=== PATIENT | female | born 1955 | race African-American/Black ===

== ENCOUNTER 2018-03-09 15:45 | Inpatient (IN) | payer MEDICARE, BC, MEDICAID ==
[~2018-03-09] VITALS: Ht 170.2 cm; Wt 133.4 kg
[2018-03-09 18:00] VITALS: BP 128/63
[2018-03-09] MEDS ORDERED: NON FORMULARY PATIENT HOME MED EA XX SCH (18:00)
[2018-03-09] MEDS ORDERED: BISACODYL 10MG SUPP PR PRN (18:00)
[2018-03-09] MEDS ORDERED: ACETAMINOPHEN 650MG/20.3ML UDC PO PRN (18:00)
[2018-03-09] MEDS ORDERED: CALCIUM CARBONATE 500MG TABLET CHEW PO PRN (18:00)
[2018-03-09] MEDS ORDERED: MAGNESIUM HYDROXIDE 400MG/5ML 30ML UDC PO PRN (18:00)
[2018-03-09] MEDS ORDERED: NA PHOS,M-B/NA PHOS,DI-BA ENEMA 118ML PR PRN (18:00)
[2018-03-09] MEDS ORDERED: DEXTROSE 50% WATER 50ML SYRINGE IV PRN (18:00)
[2018-03-09 20:00] VITALS: BP 125/59
[2018-03-09] MEDS ORDERED: LIDOCAINE HCL 4% CREAM 76GM TUBE TP PRN (20:30)
[2018-03-09] MEDS: INSULIN LISPRO 100 UNITS/ML SUBCUT SCH (21:00)
[2018-03-09] MEDS: HYDROCODONE/ACETAMINOPHEN 10/325MG TABLET PO PRN (21:01)
[2018-03-09] MEDS: PANTOPRAZOLE 40MG DR TABLET PO SCH (21:01)
[2018-03-09] MEDS: ATORVASTATIN CALCIUM 40MG TABLET PO SCH (21:01)
[2018-03-09] MEDS: BLOOD SUGAR DIAGNOSTIC STRIP TEST SCH (21:06)
[2018-03-09] MEDS: INSULIN GLARGINE UD 100 UNITS/ML SYR SUBCUT SCH (22:00)
[2018-03-09] MEDS: MORPHINE SULFATE 15MG TABLET SR PO SCH (22:39)
[2018-03-09] MEDS: GABAPENTIN 300MG CAPSULE PO SCH (22:40)
[2018-03-09] MEDS ORDERED: INFLUENZA VIRUS VACCINE(AFLURIA) 0.5ML SYR IM ONE (22:45)
[2018-03-09] MEDS ORDERED: PNEUMOCOCCAL 23-VAL P-SAC VAC 0.5 ML IM ONE (22:45)
[2018-03-10] MEDS ORDERED: GLIP5TAB12 MT (04:25)
[2018-03-10] MEDS ORDERED: INSU100V9 SQ (04:25)
[2018-03-10] MEDS ORDERED: GABA-531 MT (04:25)
[2018-03-10] MEDS ORDERED: INSU100I24 SQ (04:25)
[2018-03-10 06:00] LABS: BASOPHILS % 0.3 % (0.0-2.0); EOSINOPHILS % 4.3 % (0.0-5.0); HEMATOCRIT. 34.3 % (36.0-48.0); HEMOGLOBIN. 11.5 g/dL (12.0-16.0); LYMPHOCYTES % 36.7 % (20.0-50.0); MEAN CORPUSCULAR HEMOGLOBIN 29.9 pg (28.0-32.0); MEAN CORPUSCULAR VOLUME 89.4 fL (81.0-99.0); MONOCYTES % 8.3 % (2.0-8.0); NEUTROPHILS % 50.4 % (40.0-76.0); PLATELET 164 x1000/uL (130-400); RED BLOOD CELL COUNT 3.84 mill/uL (4.2-5.4); RED CELL DISTRIBUTION WIDTH 15.1 % (11.6-14.6)
[2018-03-10 06:24] LABS: CHLORIDE 108 mEq/L (98-107)
[2018-03-10] MEDS: GABAPENTIN 300MG CAPSULE PO SCH ×3 (06:41→21:47)
[2018-03-10] MEDS: BLOOD SUGAR DIAGNOSTIC STRIP TEST SCH ×4 (06:41→21:41)
[2018-03-10] MEDS: INSULIN LISPRO 100 UNITS/ML SUBCUT SCH ×4 (06:42→21:00)
[2018-03-10 08:00] VITALS: BP 126/55
[2018-03-10] MEDS: METHOCARBAMOL 750MG TABLET PO SCH ×2 (08:49→17:39)
[2018-03-10] MEDS: FUROSEMIDE 40MG TABLET PO SCH ×2 (08:49→09:00)
[2018-03-10] MEDS: PANTOPRAZOLE 40MG DR TABLET PO SCH ×2 (08:49→20:41)
[2018-03-10] MEDS: TERBINAFINE HCL 250MG TABLET PO SCH (08:49)
[2018-03-10] MEDS: FOLIC ACID 1MG TABLET PO SCH (08:50)
[2018-03-10] MEDS: MORPHINE SULFATE 15MG TABLET SR PO SCH ×2 (08:50→20:42)
[2018-03-10] MEDS: LOSARTAN POTASSIUM 25 MG TABLET PO SCH (09:00)
[2018-03-10] MEDS: AMLODIPINE 10MG TABLET PO SCH (09:00)
[2018-03-10] MEDS: METOPROLOL TARTRATE 50MG TABLET PO SCH ×2 (09:00→20:41)
[2018-03-10] MEDS: GLIPIZIDE XL 2.5MG TABLET PO SCH ×2 (09:00→17:39)
[2018-03-10] MEDS: INSULIN GLARGINE UD 100 UNITS/ML SYR SUBCUT SCH ×2 (10:45→21:48)
[2018-03-10] MEDS: HYDROCODONE/ACETAMINOPHEN 10/325MG TABLET PO PRN (13:48)
[2018-03-10 16:50] LABS: T4 FREE 1.04 ng/dL (0.76-1.46)
[2018-03-10 17:09] LABS: FOLIC ACID (FOLATE) SERUM >20 ng/mL ng/mL (>5.38); VITAMIN B12 SERUM 221 pg/mL (211-911)
[2018-03-10] MEDS: RIVAROXABAN 20 MG TABLET PO SCH (17:39)
[2018-03-10 20:00] VITALS: BP 119/74
[2018-03-10] MEDS: ATORVASTATIN CALCIUM 40MG TABLET PO SCH (20:41)
[2018-03-11] MEDS: GABAPENTIN 300MG CAPSULE PO SCH ×3 (05:59→21:16)
[2018-03-11] MEDS: BLOOD SUGAR DIAGNOSTIC STRIP TEST SCH ×4 (06:02→21:08)
[2018-03-11 06:16] LABS: BASOPHILS % 0.3 % (0.0-2.0); EOSINOPHILS % 4.5 % (0.0-5.0); HEMOGLOBIN. 11.9 g/dL (12.0-16.0); LYMPHOCYTES % 35.1 % (20.0-50.0); MEAN CORPUSCULAR HEMOGLOBIN 30.2 pg (28.0-32.0); MEAN CORPUSCULAR VOLUME 88.8 fL (81.0-99.0); MEAN PLATELET VOLUME 10.3 fl (7.4-10.4); MONOCYTES % 7.7 % (2.0-8.0); NEUTROPHILS % 52.4 % (40.0-76.0); PLATELET 180 x1000/uL (130-400); RED BLOOD CELL COUNT 3.94 mill/uL (4.2-5.4); RED CELL DISTRIBUTION WIDTH 15.1 % (11.6-14.6)
[2018-03-11] MEDS: INSULIN LISPRO 100 UNITS/ML SUBCUT SCH ×4 (06:36→21:26)
[2018-03-11 06:56] LABS: AMMONIA 44 uMol/L (<32)
[2018-03-11 07:01] LABS: CHLORIDE 104 mEq/L (98-107)
[2018-03-11 07:33] LABS: CREATINE KINASE 30 IU/L (26-192); HDL CHOLESTEROL 37 mg/dL (40-59); LDL CHOLESTEROL 58 mg/dL (5-100); PHOSPHORUS 4.8 mg/dL (2.5-4.9); TOTAL IRON BINDING CAPACITY 267 ug/dL (250-450)
[2018-03-11 08:15] VITALS: BP 107/38
[2018-03-11] MEDS: FOLIC ACID 1MG TABLET PO SCH (08:31)
[2018-03-11] MEDS: METHOCARBAMOL 750MG TABLET PO SCH ×2 (08:31→17:17)
[2018-03-11] MEDS: PANTOPRAZOLE 40MG DR TABLET PO SCH (08:31)
[2018-03-11] MEDS: FUROSEMIDE 40MG TABLET PO SCH (08:32)
[2018-03-11] MEDS: GLIPIZIDE XL 2.5MG TABLET PO SCH ×2 (08:32→18:38)
[2018-03-11] MEDS: TERBINAFINE HCL 250MG TABLET PO SCH (08:32)
[2018-03-11] MEDS: MORPHINE SULFATE 15MG TABLET SR PO SCH ×2 (08:33→20:15)
[2018-03-11] MEDS: LOSARTAN POTASSIUM 25 MG TABLET PO SCH (09:00)
[2018-03-11] MEDS: AMLODIPINE 10MG TABLET PO SCH (09:00)
[2018-03-11] MEDS: LACTULOSE 20G/30ML UDC PO SCH ×3 (10:38→17:00)
[2018-03-11] MEDS: DOCUSATE SODIUM 100MG CAPSULE PO SCH ×2 (10:45→17:00)
[2018-03-11] MEDS: INSULIN GLARGINE UD 100 UNITS/ML SYR SUBCUT SCH ×2 (11:21→21:26)
[2018-03-11] MEDS: RIVAROXABAN 20 MG TABLET PO SCH (17:17)
[2018-03-11 20:00] VITALS: BP 127/40
[2018-03-11] MEDS: ATORVASTATIN CALCIUM 40MG TABLET PO SCH (20:14)
[2018-03-11] MEDS: FAMOTIDINE 20MG TABLET PO SCH (20:14)
[2018-03-11] MEDS: POLYETHYLENE GLYCOL 3350 (17GM) 1 DOSE PACK PO SCH (20:15)
[2018-03-11] MEDS: MUPIROCIN 2% OINT 22GM NS SCH (21:17)
[2018-03-12] MEDS: GABAPENTIN 300MG CAPSULE PO SCH ×3 (06:14→21:43)
[2018-03-12] MEDS: BLOOD SUGAR DIAGNOSTIC STRIP TEST SCH ×4 (06:18→21:44)
[2018-03-12] MEDS: INSULIN LISPRO 100 UNITS/ML SUBCUT SCH ×4 (06:34→21:00)
[2018-03-12 08:12] VITALS: BP 108/29
[2018-03-12] MEDS: MUPIROCIN 2% OINT 22GM NS SCH ×2 (08:42→21:40)
[2018-03-12] MEDS: FAMOTIDINE 20MG TABLET PO SCH ×2 (08:42→21:43)
[2018-03-12] MEDS: GLIPIZIDE XL 2.5MG TABLET PO SCH ×2 (08:42→17:16)
[2018-03-12] MEDS: FOLIC ACID 1MG TABLET PO SCH (08:42)
[2018-03-12] MEDS: METHOCARBAMOL 750MG TABLET PO SCH ×2 (08:42→17:15)
[2018-03-12] MEDS: TERBINAFINE HCL 250MG TABLET PO SCH (08:42)
[2018-03-12] MEDS: MORPHINE SULFATE 15MG TABLET SR PO SCH ×2 (08:46→21:42)
[2018-03-12] MEDS: LOSARTAN POTASSIUM 25 MG TABLET PO SCH (09:00)
[2018-03-12] MEDS: DOCUSATE SODIUM 100MG CAPSULE PO SCH (09:00)
[2018-03-12] MEDS: AMLODIPINE 10MG TABLET PO SCH (09:00)
[2018-03-12] MEDS: INSULIN GLARGINE UD 100 UNITS/ML SYR SUBCUT SCH ×2 (10:38→21:45)
[2018-03-12] MEDS: CYANOCOBALAMIN 1000MCG TABLET PO SCH (13:37)
[2018-03-12] MEDS: RIVAROXABAN 20 MG TABLET PO SCH (17:15)
[2018-03-12] MEDS: THROAT LOZENGES-BENZOCAINE/MENTH/CETYLPYRD CL LOZENGES MM PRN (17:16)
[2018-03-12 20:00] VITALS: BP 140/62
[2018-03-12] MEDS: POLYETHYLENE GLYCOL 3350 (17GM) 1 DOSE PACK PO SCH (21:00)
[2018-03-12] MEDS: ATORVASTATIN CALCIUM 40MG TABLET PO SCH (21:43)
[2018-03-12] MEDS: HYDROCODONE/ACETAMINOPHEN 10/325MG TABLET PO PRN (23:36)
[2018-03-13] MEDS: BLOOD SUGAR DIAGNOSTIC STRIP TEST SCH ×4 (06:03→21:36)
[2018-03-13] MEDS: GABAPENTIN 300MG CAPSULE PO SCH ×3 (06:04→21:35)
[2018-03-13 06:42] LABS: BASOPHILS % 0.5 % (0.0-2.0); EOSINOPHILS % 4.3 % (0.0-5.0); HEMATOCRIT. 35.1 % (36.0-48.0); LYMPHOCYTES % 39.6 % (20.0-50.0); MEAN CORPUSCULAR HEMOGLOBIN 30.1 pg (28.0-32.0); MEAN CORPUSCULAR VOLUME 88.6 fL (81.0-99.0); MEAN PLATELET VOLUME 10.2 fl (7.4-10.4); MONOCYTES % 7.8 % (2.0-8.0); NEUTROPHILS % 47.8 % (40.0-76.0); PLATELET 187 x1000/uL (130-400); RED BLOOD CELL COUNT 3.97 mill/uL (4.2-5.4); RED CELL DISTRIBUTION WIDTH 14.7 % (11.6-14.6)
[2018-03-13 07:14] LABS: CHLORIDE 107 mEq/L (98-107)
[2018-03-13 08:00] VITALS: BP 120/42
[2018-03-13] MEDS: INSULIN LISPRO 100 UNITS/ML SUBCUT SCH ×4 (09:00→21:00)
[2018-03-13] MEDS: AMLODIPINE 10MG TABLET PO SCH (09:00)
[2018-03-13] MEDS: MUPIROCIN 2% OINT 22GM NS SCH ×2 (09:49→21:34)
[2018-03-13] MEDS: GLIPIZIDE XL 2.5MG TABLET PO SCH ×2 (09:52→16:03)
[2018-03-13] MEDS: CYANOCOBALAMIN 1000MCG TABLET PO SCH (09:52)
[2018-03-13] MEDS: METHOCARBAMOL 750MG TABLET PO SCH ×2 (09:53→16:02)
[2018-03-13] MEDS: TERBINAFINE HCL 250MG TABLET PO SCH (09:53)
[2018-03-13] MEDS: FAMOTIDINE 20MG TABLET PO SCH ×2 (09:53→21:35)
[2018-03-13] MEDS: FOLIC ACID 1MG TABLET PO SCH (09:54)
[2018-03-13] MEDS: MORPHINE SULFATE 15MG TABLET SR PO SCH ×2 (09:55→21:36)
[2018-03-13] MEDS: LOSARTAN POTASSIUM 25 MG TABLET PO SCH (09:55)
[2018-03-13] MEDS: INSULIN GLARGINE UD 100 UNITS/ML SYR SUBCUT SCH ×2 (11:14→21:38)
[2018-03-13] MEDS: HYDROCODONE/ACETAMINOPHEN 10/325MG TABLET PO PRN (11:56)
[2018-03-13] MEDS: CYANOCOBALAMIN 1000MCG/ML VIAL IM SCH (15:59)
[2018-03-13] MEDS: RIVAROXABAN 20 MG TABLET PO SCH (16:02)
[2018-03-13] MEDS ORDERED: METHYL SALICYLATE/MENTHOL CREAM 85GM TOP PRN (16:30)
[2018-03-13] MEDS: METHYL SALICYLATE/MENTHOL CREAM 85GM TOP PRN (19:44)
[2018-03-13 20:00] VITALS: BP 133/46
[2018-03-13] MEDS: POLYETHYLENE GLYCOL 3350 (17GM) 1 DOSE PACK PO SCH (21:00)
[2018-03-13] MEDS: ATORVASTATIN CALCIUM 40MG TABLET PO SCH (21:35)
[2018-03-14] MEDS: METHYL SALICYLATE/MENTHOL CREAM 85GM TOP PRN (05:59)
[2018-03-14] MEDS: BLOOD SUGAR DIAGNOSTIC STRIP TEST SCH ×4 (06:16→21:35)
[2018-03-14] MEDS: GABAPENTIN 300MG CAPSULE PO SCH ×3 (06:16→21:27)
[2018-03-14 07:07] LABS: AMMONIA 25 uMol/L (<32)
[2018-03-14] MEDS: INSULIN LISPRO 100 UNITS/ML SUBCUT SCH ×4 (07:46→22:10)
[2018-03-14 08:01] VITALS: BP 116/38
[2018-03-14] MEDS: METHOCARBAMOL 750MG TABLET PO SCH ×2 (08:24→17:42)
[2018-03-14] MEDS: FOLIC ACID 1MG TABLET PO SCH (08:24)
[2018-03-14] MEDS: GLIPIZIDE XL 2.5MG TABLET PO SCH ×2 (08:24→17:42)
[2018-03-14] MEDS: TERBINAFINE HCL 250MG TABLET PO SCH (08:25)
[2018-03-14] MEDS: FAMOTIDINE 20MG TABLET PO SCH ×2 (08:25→21:34)
[2018-03-14] MEDS: CYANOCOBALAMIN 1000MCG/ML VIAL IM SCH (08:25)
[2018-03-14] MEDS: MORPHINE SULFATE 15MG TABLET SR PO SCH (08:25)
[2018-03-14] MEDS: AMLODIPINE 10MG TABLET PO SCH (08:26)
[2018-03-14] MEDS: LOSARTAN POTASSIUM 25 MG TABLET PO SCH (08:26)
[2018-03-14] MEDS: MUPIROCIN 2% OINT 22GM NS SCH ×2 (09:00→21:42)
[2018-03-14] MEDS: INSULIN GLARGINE UD 100 UNITS/ML SYR SUBCUT SCH ×2 (09:49→22:12)
[2018-03-14] MEDS: HYDROCODONE/ACETAMINOPHEN 10/325MG TABLET PO PRN (15:28)
[2018-03-14] MEDS: RIVAROXABAN 20 MG TABLET PO SCH (17:42)
[2018-03-14 20:00] VITALS: BP 119/38
[2018-03-14] MEDS ORDERED: MORPHINE SULFATE 15MG TABLET SR PO SCH (21:00)
[2018-03-14] MEDS: POLYETHYLENE GLYCOL 3350 (17GM) 1 DOSE PACK PO SCH (21:00)
[2018-03-15] MEDS: BLOOD SUGAR DIAGNOSTIC STRIP TEST SCH ×4 (06:19→21:26)
[2018-03-15] MEDS: GABAPENTIN 300MG CAPSULE PO SCH ×3 (06:19→21:10)
[2018-03-15] MEDS: INSULIN LISPRO 100 UNITS/ML SUBCUT SCH ×4 (06:19→21:28)
[2018-03-15] MEDS: THROAT LOZENGES-BENZOCAINE/MENTH/CETYLPYRD CL LOZENGES MM PRN ×2 (06:23→10:21)
[2018-03-15 08:00] VITALS: BP 104/40
[2018-03-15] MEDS: CYANOCOBALAMIN 1000MCG/ML VIAL IM SCH (09:00)
[2018-03-15] MEDS: LOSARTAN POTASSIUM 25 MG TABLET PO SCH (09:00)
[2018-03-15] MEDS: AMLODIPINE 10MG TABLET PO SCH (09:00)
[2018-03-15] MEDS: TERBINAFINE HCL 250MG TABLET PO SCH (10:07)
[2018-03-15] MEDS: FOLIC ACID 1MG TABLET PO SCH (10:08)
[2018-03-15] MEDS: METHOCARBAMOL 750MG TABLET PO SCH ×2 (10:08→17:55)
[2018-03-15] MEDS: FAMOTIDINE 20MG TABLET PO SCH ×2 (10:08→21:10)
[2018-03-15] MEDS: MUPIROCIN 2% OINT 22GM NS SCH ×2 (10:12→21:00)
[2018-03-15] MEDS: METHYL SALICYLATE/MENTHOL CREAM 85GM TOP PRN (10:15)
[2018-03-15] MEDS: INSULIN GLARGINE UD 100 UNITS/ML SYR SUBCUT SCH ×2 (10:28→21:29)
[2018-03-15] MEDS: GLIPIZIDE XL 2.5MG TABLET PO SCH ×2 (10:30→17:54)
[2018-03-15] MEDS: LIDOCAINE HCL 4% CREAM 76GM TUBE TP PRN ×2 (11:24→16:43)
[2018-03-15] MEDS ORDERED: LIDOCAINE 5% PATCH TOP SCH (13:00)
[2018-03-15] MEDS: LIDOCAINE 5% PATCH TOP SCH (13:30)
[2018-03-15] MEDS: LACTULOSE 20G/30ML UDC PO NR (14:27)
[2018-03-15] MEDS: RIVAROXABAN 20 MG TABLET PO SCH (17:55)
[2018-03-15] MEDS ORDERED: MORPHINE SULFATE 4 MG/ML CPJ (NOT FOR IM USE) IV PRN (19:45)
[2018-03-15] MEDS: HYDROCODONE/ACETAMINOPHEN 10/325MG TABLET PO PRN (19:51)
[2018-03-15 20:00] VITALS: BP 129/42
[2018-03-15] MEDS ORDERED: LORAZEPAM 2MG/ML CPJ IV PRN (20:45)
[2018-03-15] MEDS: POLYETHYLENE GLYCOL 3350 (17GM) 1 DOSE PACK PO SCH (21:00)
[2018-03-15] MEDS ORDERED: FUROSEMIDE 40MG TABLET PO SCH (21:30)
[2018-03-16] MEDS: BLOOD SUGAR DIAGNOSTIC STRIP TEST SCH ×4 (05:52→21:29)
[2018-03-16] MEDS: GABAPENTIN 300MG CAPSULE PO SCH ×3 (05:53→21:28)
[2018-03-16] MEDS: INSULIN LISPRO 100 UNITS/ML SUBCUT SCH ×4 (06:02→21:29)
[2018-03-16 08:26] VITALS: BP 122/40
[2018-03-16] MEDS: CYANOCOBALAMIN 1000MCG/ML VIAL IM SCH (08:41)
[2018-03-16] MEDS: TERBINAFINE HCL 250MG TABLET PO SCH (08:42)
[2018-03-16] MEDS: GLIPIZIDE XL 2.5MG TABLET PO SCH ×2 (08:43→16:56)
[2018-03-16] MEDS: METHOCARBAMOL 750MG TABLET PO SCH ×2 (08:44→16:57)
[2018-03-16] MEDS: FOLIC ACID 1MG TABLET PO SCH (08:44)
[2018-03-16] MEDS: LIDOCAINE 5% PATCH TOP SCH (08:50)
[2018-03-16] MEDS: FAMOTIDINE 20MG TABLET PO SCH ×2 (08:51→21:28)
[2018-03-16] MEDS: AMLODIPINE 10MG TABLET PO SCH (09:00)
[2018-03-16] MEDS: LOSARTAN POTASSIUM 25 MG TABLET PO SCH (09:00)
[2018-03-16] MEDS ORDERED: FUROSEMIDE 40MG TABLET PO SCH (09:00)
[2018-03-16] MEDS ORDERED: FUROSEMIDE 40MG/4ML VIAL IVP SCH (09:00)
[2018-03-16] MEDS: MUPIROCIN 2% OINT 22GM NS SCH ×2 (09:55→21:28)
[2018-03-16] MEDS: ALPRAZOLAM 0.25 MG TABLET PO SCH ×4 (10:02→21:38)
[2018-03-16] MEDS: INSULIN GLARGINE UD 100 UNITS/ML SYR SUBCUT SCH ×2 (10:12→21:29)
[2018-03-16] MEDS: LIDOCAINE HCL 4% CREAM 76GM TUBE TP PRN (11:22)
[2018-03-16] MEDS ORDERED: POTASSIUM CHLORIDE 20MEQ TABLET SR PO NR (13:00)
[2018-03-16] MEDS: HYDROCODONE/ACETAMINOPHEN 10/325MG TABLET PO PRN (14:32)
[2018-03-16 14:39] LABS: 25-HYDROXY VITAMIN D3 33 ng/mL (.)
[2018-03-16] MEDS: RIVAROXABAN 20 MG TABLET PO SCH (16:55)
[2018-03-16] MEDS: FUROSEMIDE 40MG/4ML VIAL IVP SCH (16:57)
[2018-03-16] MEDS: THROAT LOZENGES-BENZOCAINE/MENTH/CETYLPYRD CL LOZENGES MM PRN (16:58)
[2018-03-16] MEDS: NYSTATIN 100,000 UNITS/ML 5ML UDC SSW SCH (18:18)
[2018-03-16 20:00] VITALS: BP 127/41
[2018-03-16] MEDS: POLYETHYLENE GLYCOL 3350 (17GM) 1 DOSE PACK PO SCH (21:00)
[2018-03-17] MEDS: ALPRAZOLAM 0.25 MG TABLET PO SCH ×3 (06:00→21:41)
[2018-03-17] MEDS: GABAPENTIN 300MG CAPSULE PO SCH ×3 (07:00→21:33)
[2018-03-17] MEDS: FUROSEMIDE 40MG/4ML VIAL IVP SCH ×2 (07:00→17:15)
[2018-03-17] MEDS: BLOOD SUGAR DIAGNOSTIC STRIP TEST SCH ×4 (07:00→21:33)
[2018-03-17] MEDS: INSULIN LISPRO 100 UNITS/ML SUBCUT SCH ×4 (07:01→21:00)
[2018-03-17 08:00] VITALS: BP 127/47
[2018-03-17] MEDS: MUPIROCIN 2% OINT 22GM NS SCH ×2 (09:36→21:32)
[2018-03-17] MEDS: LIDOCAINE HCL 4% CREAM 76GM TUBE TP PRN (09:36)
[2018-03-17] MEDS: METHOCARBAMOL 750MG TABLET PO SCH ×2 (09:40→17:42)
[2018-03-17] MEDS: HYDROCODONE/ACETAMINOPHEN 10/325MG TABLET PO PRN ×2 (09:41→21:35)
[2018-03-17] MEDS: LIDOCAINE 5% PATCH TOP SCH (10:01)
[2018-03-17] MEDS: CYANOCOBALAMIN 1000MCG/ML VIAL IM SCH (10:04)
[2018-03-17] MEDS: POTASSIUM CHLORIDE 20MEQ TABLET SR PO SCH (10:04)
[2018-03-17] MEDS: FOLIC ACID 1MG TABLET PO SCH (10:05)
[2018-03-17] MEDS: TERBINAFINE HCL 250MG TABLET PO SCH (10:05)
[2018-03-17] MEDS: FAMOTIDINE 20MG TABLET PO SCH ×2 (10:05→21:33)
[2018-03-17] MEDS: LOSARTAN POTASSIUM 25 MG TABLET PO SCH (10:05)
[2018-03-17] MEDS: GLIPIZIDE XL 2.5MG TABLET PO SCH ×3 (10:05→17:43)
[2018-03-17] MEDS: AMLODIPINE 2.5MG TABLET PO SCH (10:06)
[2018-03-17] MEDS: NYSTATIN 100,000 UNITS/ML 5ML UDC SSW SCH ×2 (10:11→18:14)
[2018-03-17] MEDS: INSULIN GLARGINE UD 100 UNITS/ML SYR SUBCUT SCH ×2 (10:12→21:41)
[2018-03-17 13:17] LABS: BASOPHILS % 0.4 % (0.0-2.0); EOSINOPHILS % 2.7 % (0.0-5.0); HEMATOCRIT. 41.1 % (36.0-48.0); HEMOGLOBIN. 13.9 g/dL (12.0-16.0); LYMPHOCYTES % 25.8 % (20.0-50.0); MEAN CORPUSCULAR VOLUME 88.7 fL (81.0-99.0); MEAN PLATELET VOLUME 9.8 fl (7.4-10.4); MONOCYTES % 5.8 % (2.0-8.0); NEUTROPHILS % 65.3 % (40.0-76.0); PLATELET 246 x1000/uL (130-400); RED BLOOD CELL COUNT 4.63 mill/uL (4.2-5.4); RED CELL DISTRIBUTION WIDTH 14.8 % (11.6-14.6)
[2018-03-17 13:25] LABS: CHLORIDE 100 mEq/L (98-107)
[2018-03-17 13:31] LABS: PHOSPHORUS 3.5 mg/dL (2.5-4.9)
[2018-03-17] MEDS ORDERED: FUROSEMIDE 40MG/4ML VIAL IVP SCH (14:45)
[2018-03-17] MEDS: RIVAROXABAN 20 MG TABLET PO SCH (17:42)
[2018-03-17 20:00] VITALS: BP 124/48
[2018-03-18] MEDS: ALPRAZOLAM 0.25 MG TABLET PO SCH ×4 (06:00→22:00)
[2018-03-18] MEDS: FUROSEMIDE 40MG/4ML VIAL IVP SCH ×2 (06:51→18:27)
[2018-03-18] MEDS: GABAPENTIN 300MG CAPSULE PO SCH ×3 (06:51→21:29)
[2018-03-18] MEDS: BLOOD SUGAR DIAGNOSTIC STRIP TEST SCH ×4 (06:52→21:30)
[2018-03-18 07:43] LABS: BASOPHILS % 0.4 % (0.0-2.0); EOSINOPHILS % 3.3 % (0.0-5.0); HEMATOCRIT. 37.7 % (36.0-48.0); HEMOGLOBIN. 12.5 g/dL (12.0-16.0); LYMPHOCYTES % 35.4 % (20.0-50.0); MEAN CORPUSCULAR HEMOGLOBIN 29.5 pg (28.0-32.0); MEAN CORPUSCULAR VOLUME 89.1 fL (81.0-99.0); MEAN PLATELET VOLUME 9.9 fl (7.4-10.4); MONOCYTES % 8.7 % (2.0-8.0); NEUTROPHILS % 52.2 % (40.0-76.0); PLATELET 207 x1000/uL (130-400); RED BLOOD CELL COUNT 4.23 mill/uL (4.2-5.4); RED CELL DISTRIBUTION WIDTH 15.2 % (11.6-14.6)
[2018-03-18 07:45] LABS: CHLORIDE 102 mEq/L (98-107)
[2018-03-18 08:00] VITALS: BP 109/39
[2018-03-18] MEDS: LOSARTAN POTASSIUM 25 MG TABLET PO SCH (09:00)
[2018-03-18] MEDS: AMLODIPINE 2.5MG TABLET PO SCH (09:00)
[2018-03-18] MEDS: INSULIN LISPRO 100 UNITS/ML SUBCUT SCH ×4 (09:00→21:59)
[2018-03-18] MEDS: INSULIN GLARGINE UD 100 UNITS/ML SYR SUBCUT SCH ×2 (10:00→21:59)
[2018-03-18] MEDS: MUPIROCIN 2% OINT 22GM NS SCH ×2 (10:18→21:29)
[2018-03-18] MEDS: POTASSIUM CHLORIDE 20MEQ TABLET SR PO SCH (10:19)
[2018-03-18] MEDS: LIDOCAINE 5% PATCH TOP SCH (10:19)
[2018-03-18] MEDS: TERBINAFINE HCL 250MG TABLET PO SCH (10:20)
[2018-03-18] MEDS: FOLIC ACID 1MG TABLET PO SCH (10:20)
[2018-03-18] MEDS: GLIPIZIDE XL 2.5MG TABLET PO SCH ×2 (10:20→17:45)
[2018-03-18] MEDS: CYANOCOBALAMIN 1000MCG/ML VIAL IM SCH (10:20)
[2018-03-18] MEDS: NYSTATIN 100,000 UNITS/ML 5ML UDC SSW SCH ×2 (10:20→17:44)
[2018-03-18] MEDS: METHOCARBAMOL 750MG TABLET PO SCH ×2 (10:21→17:45)
[2018-03-18] MEDS: FAMOTIDINE 20MG TABLET PO SCH ×2 (10:21→21:29)
[2018-03-18] MEDS: LOPERAMIDE HCL 2MG CAPSULE PO PRN (10:42)
[2018-03-18] MEDS: HYDROCODONE/ACETAMINOPHEN 10/325MG TABLET PO PRN ×2 (10:42→17:46)
[2018-03-18] MEDS ORDERED: HYDROCODONE/ACETAMINOPHEN 10/325MG TABLET ONE (17:14)
[2018-03-18] MEDS: RIVAROXABAN 20 MG TABLET PO SCH (17:45)
[2018-03-18 20:00] VITALS: BP 120/46
[2018-03-19] MEDS: ALPRAZOLAM 0.25 MG TABLET PO SCH ×3 (06:00→21:59)
[2018-03-19] MEDS: INSULIN LISPRO 100 UNITS/ML SUBCUT SCH ×4 (06:45→22:01)
[2018-03-19] MEDS: BLOOD SUGAR DIAGNOSTIC STRIP TEST SCH ×4 (06:45→21:59)
[2018-03-19] MEDS: GABAPENTIN 300MG CAPSULE PO SCH ×3 (06:45→21:59)
[2018-03-19 08:00] VITALS: BP 120/96
[2018-03-19] MEDS: LIDOCAINE 5% PATCH TOP SCH (09:13)
[2018-03-19] MEDS: POTASSIUM CHLORIDE 20MEQ TABLET SR PO SCH (09:13)
[2018-03-19] MEDS: NYSTATIN 100,000 UNITS/ML 5ML UDC SSW SCH ×2 (09:13→18:00)
[2018-03-19] MEDS: GLIPIZIDE XL 2.5MG TABLET PO SCH ×2 (09:13→18:00)
[2018-03-19] MEDS: TERBINAFINE HCL 250MG TABLET PO SCH (09:14)
[2018-03-19] MEDS: CYANOCOBALAMIN 1000MCG/ML VIAL IM SCH (09:14)
[2018-03-19] MEDS: FAMOTIDINE 20MG TABLET PO SCH ×2 (09:14→21:59)
[2018-03-19] MEDS: METHOCARBAMOL 750MG TABLET PO SCH ×2 (09:14→18:00)
[2018-03-19] MEDS: FOLIC ACID 1MG TABLET PO SCH (09:15)
[2018-03-19] MEDS: FUROSEMIDE 80MG TABLET PO SCH ×2 (09:15→18:00)
[2018-03-19] MEDS: INSULIN GLARGINE UD 100 UNITS/ML SYR SUBCUT SCH ×3 (10:00→22:02)
[2018-03-19] MEDS: RIVAROXABAN 20 MG TABLET PO SCH (18:00)
[2018-03-19 20:00] VITALS: BP 120/43
[2018-03-20] MEDS: BLOOD SUGAR DIAGNOSTIC STRIP TEST SCH ×4 (05:51→21:49)
[2018-03-20] MEDS: ALPRAZOLAM 0.25 MG TABLET PO SCH ×3 (05:51→21:44)
[2018-03-20] MEDS: GABAPENTIN 300MG CAPSULE PO SCH ×3 (05:54→21:44)
[2018-03-20 06:52] LABS: BASOPHILS % 0.4 % (0.0-2.0); EOSINOPHILS % 2.4 % (0.0-5.0); HEMOGLOBIN. 13.3 g/dL (12.0-16.0); LYMPHOCYTES % 33.1 % (20.0-50.0); MEAN CORPUSCULAR HEMOGLOBIN 29.3 pg (28.0-32.0); MEAN CORPUSCULAR VOLUME 88.1 fL (81.0-99.0); MEAN PLATELET VOLUME 10.1 fl (7.4-10.4); MONOCYTES % 7.3 % (2.0-8.0); NEUTROPHILS % 56.8 % (40.0-76.0); PLATELET 234 x1000/uL (130-400); RED BLOOD CELL COUNT 4.54 mill/uL (4.2-5.4); RED CELL DISTRIBUTION WIDTH 14.7 % (11.6-14.6)
[2018-03-20 07:02] LABS: CHLORIDE 101 mEq/L (98-107)
[2018-03-20 07:04] LABS: PHOSPHORUS 4.2 mg/dL (2.5-4.9)
[2018-03-20] MEDS: INSULIN LISPRO 100 UNITS/ML SUBCUT SCH ×4 (07:39→21:47)
[2018-03-20 07:58] VITALS: BP 134/52
[2018-03-20] MEDS: LOPERAMIDE HCL 2MG CAPSULE PO PRN (10:00)
[2018-03-20] MEDS: GLIPIZIDE XL 2.5MG TABLET PO SCH ×2 (10:00→17:38)
[2018-03-20] MEDS: TERBINAFINE HCL 250MG TABLET PO SCH (10:00)
[2018-03-20] MEDS: METHOCARBAMOL 750MG TABLET PO SCH ×2 (10:00→17:38)
[2018-03-20] MEDS: FAMOTIDINE 20MG TABLET PO SCH ×2 (10:01→21:44)
[2018-03-20] MEDS: FUROSEMIDE 80MG TABLET PO SCH ×2 (10:01→17:38)
[2018-03-20] MEDS: POTASSIUM CHLORIDE 20MEQ TABLET SR PO SCH (10:01)
[2018-03-20] MEDS: FOLIC ACID 1MG TABLET PO SCH (10:01)
[2018-03-20] MEDS: NYSTATIN 100,000 UNITS/ML 5ML UDC SSW SCH ×2 (10:01→17:38)
[2018-03-20] MEDS: INSULIN GLARGINE UD 100 UNITS/ML SYR SUBCUT SCH ×2 (10:02→21:47)
[2018-03-20] MEDS: LIDOCAINE HCL 4% CREAM 76GM TUBE TP PRN (10:03)
[2018-03-20] MEDS: HYDROCODONE/ACETAMINOPHEN 10/325MG TABLET PO PRN (10:12)
[2018-03-20] MEDS: LIDOCAINE 5% PATCH TOP SCH (12:34)
[2018-03-20] MEDS: DIPHENOXYLATE/ATROPINE 2.5/0.025MG TABLET PO PRN (14:40)
[2018-03-20] MEDS: THROAT LOZENGES-BENZOCAINE/MENTH/CETYLPYRD CL LOZENGES MM PRN (14:40)
[2018-03-20] MEDS: RIVAROXABAN 20 MG TABLET PO SCH (17:38)
[2018-03-20 20:00] VITALS: BP 120/41
[2018-03-21] MEDS: ALPRAZOLAM 0.25 MG TABLET PO SCH (05:45)
[2018-03-21] MEDS: BLOOD SUGAR DIAGNOSTIC STRIP TEST SCH ×4 (05:45→21:15)
[2018-03-21] MEDS: GABAPENTIN 300MG CAPSULE PO SCH ×3 (05:45→21:13)
[2018-03-21] MEDS: INSULIN LISPRO 100 UNITS/ML SUBCUT SCH ×4 (07:43→21:15)
[2018-03-21 07:52] VITALS: BP 121/48
[2018-03-21] MEDS: LIDOCAINE 5% PATCH TOP SCH (08:43)
[2018-03-21] MEDS: POTASSIUM CHLORIDE 20MEQ TABLET SR PO SCH (08:44)
[2018-03-21] MEDS: GLIPIZIDE XL 2.5MG TABLET PO SCH ×2 (08:44→17:07)
[2018-03-21] MEDS: FAMOTIDINE 20MG TABLET PO SCH ×2 (08:44→21:14)
[2018-03-21] MEDS: FOLIC ACID 1MG TABLET PO SCH (08:44)
[2018-03-21] MEDS: METHOCARBAMOL 750MG TABLET PO SCH ×2 (08:44→17:06)
[2018-03-21] MEDS: NYSTATIN 100,000 UNITS/ML 5ML UDC SSW SCH ×2 (08:44→17:06)
[2018-03-21] MEDS: FUROSEMIDE 80MG TABLET PO SCH ×2 (08:44→17:06)
[2018-03-21] MEDS: METHYL SALICYLATE/MENTHOL CREAM 85GM TOP PRN (09:16)
[2018-03-21] MEDS: DIPHENOXYLATE/ATROPINE 2.5/0.025MG TABLET PO PRN (10:48)
[2018-03-21] MEDS: INSULIN GLARGINE UD 100 UNITS/ML SYR SUBCUT SCH ×2 (10:50→21:14)
[2018-03-21] MEDS: HYDROCODONE/ACETAMINOPHEN 10/325MG TABLET PO PRN ×2 (11:04→21:28)
[2018-03-21] MEDS ORDERED: ONDANSETRON HCL 4MG/2ML INJ IV PRN (13:00)
[2018-03-21] MEDS: LACTOBACILLUS GG CAPSULE PO SCH (17:06)
[2018-03-21 20:00] VITALS: BP 115/48
[2018-03-22] MEDS: BLOOD SUGAR DIAGNOSTIC STRIP TEST SCH ×4 (06:06→21:00)
[2018-03-22] MEDS: GABAPENTIN 300MG CAPSULE PO SCH ×3 (06:13→22:07)
[2018-03-22] MEDS: INSULIN LISPRO 100 UNITS/ML SUBCUT SCH ×4 (06:14→22:13)
[2018-03-22 07:08] LABS: BASOPHILS % 0.5 % (0.0-2.0); EOSINOPHILS % 3.2 % (0.0-5.0); HEMATOCRIT. 39.9 % (36.0-48.0); HEMOGLOBIN. 13.4 g/dL (12.0-16.0); LYMPHOCYTES % 35.6 % (20.0-50.0); MEAN CORPUSCULAR HEMOGLOBIN 29.7 pg (28.0-32.0); MEAN CORPUSCULAR VOLUME 88.5 fL (81.0-99.0); MONOCYTES % 8.6 % (2.0-8.0); NEUTROPHILS % 52.1 % (40.0-76.0); PLATELET 208 x1000/uL (130-400); RED BLOOD CELL COUNT 4.51 mill/uL (4.2-5.4); RED CELL DISTRIBUTION WIDTH 14.8 % (11.6-14.6)
[2018-03-22 08:00] VITALS: BP 118/43
[2018-03-22 08:12] LABS: CHLORIDE 98 mEq/L (98-107)
[2018-03-22] MEDS: HYDROCODONE/ACETAMINOPHEN 10/325MG TABLET PO PRN ×2 (08:47→15:30)
[2018-03-22] MEDS: GLIPIZIDE XL 2.5MG TABLET PO SCH ×2 (08:48→17:00)
[2018-03-22] MEDS: FAMOTIDINE 20MG TABLET PO SCH ×2 (08:48→22:07)
[2018-03-22] MEDS: FUROSEMIDE 80MG TABLET PO SCH (08:48)
[2018-03-22] MEDS: FOLIC ACID 1MG TABLET PO SCH (08:48)
[2018-03-22] MEDS: POTASSIUM CHLORIDE 20MEQ TABLET SR PO SCH (09:59)
[2018-03-22] MEDS: LIDOCAINE 5% PATCH TOP SCH (09:59)
[2018-03-22] MEDS: METHOCARBAMOL 750MG TABLET PO SCH ×2 (09:59→17:00)
[2018-03-22] MEDS: NYSTATIN 100,000 UNITS/ML 5ML UDC SSW SCH ×2 (09:59→17:00)
[2018-03-22] MEDS: LIDOCAINE HCL 4% CREAM 76GM TUBE TP PRN (10:08)
[2018-03-22] MEDS: INSULIN GLARGINE UD 100 UNITS/ML SYR SUBCUT SCH ×2 (10:36→22:13)
[2018-03-22] MEDS: METHYL SALICYLATE/MENTHOL CREAM 85GM TOP PRN (10:39)
[2018-03-22] MEDS: DIPHENOXYLATE/ATROPINE 2.5/0.025MG TABLET PO PRN (15:30)
[2018-03-22] MEDS: LACTOBACILLUS GG CAPSULE PO SCH (17:00)
[2018-03-22] MEDS: FUROSEMIDE 40MG TABLET PO SCH (17:15)
[2018-03-22 20:00] VITALS: BP 119/36
[2018-03-23] MEDS: METRONIDAZOLE 500MG TABLET PO SCH ×2 (06:08→13:26)
[2018-03-23] MEDS: FUROSEMIDE 40MG TABLET PO SCH ×2 (06:08→16:58)
[2018-03-23] MEDS: GABAPENTIN 300MG CAPSULE PO SCH ×2 (06:08→13:41)
[2018-03-23] MEDS: BLOOD SUGAR DIAGNOSTIC STRIP TEST SCH ×3 (06:08→17:00)
[2018-03-23] MEDS: INSULIN LISPRO 100 UNITS/ML SUBCUT SCH ×3 (06:32→17:00)
[2018-03-23] MEDS: LIDOCAINE HCL 4% CREAM 76GM TUBE TP PRN ×2 (06:57→16:39)
[2018-03-23] MEDS: METHYL SALICYLATE/MENTHOL CREAM 85GM TOP PRN ×2 (06:57→16:39)
[2018-03-23 07:23] LABS: BASOPHILS % 0.6 % (0.0-2.0); EOSINOPHILS % 2.7 % (0.0-5.0); HEMATOCRIT. 38.5 % (36.0-48.0); HEMOGLOBIN. 12.6 g/dL (12.0-16.0); LYMPHOCYTES % 33.9 % (20.0-50.0); MEAN CORPUSCULAR HEMOGLOBIN 28.9 pg (28.0-32.0); MEAN CORPUSCULAR VOLUME 88.3 fL (81.0-99.0); MEAN PLATELET VOLUME 10.3 fl (7.4-10.4); MONOCYTES % 7.7 % (2.0-8.0); NEUTROPHILS % 55.1 % (40.0-76.0); PLATELET 213 x1000/uL (130-400); RED BLOOD CELL COUNT 4.36 mill/uL (4.2-5.4); RED CELL DISTRIBUTION WIDTH 14.4 % (11.6-14.6)
[2018-03-23 07:37] LABS: CHLORIDE 100 mEq/L (98-107)
[2018-03-23 08:00] VITALS: BP 120/43
[2018-03-23] MEDS: FOLIC ACID 1MG TABLET PO SCH (09:37)
[2018-03-23] MEDS: POTASSIUM CHLORIDE 20MEQ TABLET SR PO SCH (09:37)
[2018-03-23] MEDS: METHOCARBAMOL 750MG TABLET PO SCH ×2 (09:37→16:58)
[2018-03-23] MEDS: FAMOTIDINE 20MG TABLET PO SCH (09:38)
[2018-03-23] MEDS: GLIPIZIDE XL 2.5MG TABLET PO SCH ×2 (09:38→16:59)
[2018-03-23] MEDS: NYSTATIN 100,000 UNITS/ML 5ML UDC SSW SCH ×2 (09:39→16:58)
[2018-03-23] MEDS: LIDOCAINE 5% PATCH TOP SCH (09:41)
[2018-03-23] MEDS: INSULIN GLARGINE UD 100 UNITS/ML SYR SUBCUT SCH (10:57)
[2018-03-23 14:33] VITALS: BP 120/43
[2018-03-23 16:36] VITALS: BP 107/40
[2018-03-23] MEDS: HYDROCODONE/ACETAMINOPHEN 10/325MG TABLET PO PRN (16:36)
[2018-03-23] MEDS: LOPERAMIDE HCL 2MG CAPSULE PO PRN (16:58)
[2018-03-23] MEDS: LACTOBACILLUS GG CAPSULE PO SCH (17:09)
[2018-03-26] MEDS ORDERED: CYANOCOBALAMIN 1000MCG/ML VIAL INJ SCH (09:00)
== END 2018-03-23 18:48 | disposition home health service (06) | DRG 52 ==
PROVIDERS: ADMIT Physical Medicine & Rehabilitation Spinal Cord Injury Medicine; ATTEND Internal Medicine Nephrology
DX: G82.20 Paraplegia, unspecified (principal); I50.31 Acute diastolic (congestive) heart failure; I82.402 Acute embolism and thrombosis of unspecified deep veins of left lower extremity; Z68.42 Body mass index [BMI] 45.0-49.9, adult; E46 Unspecified protein-calorie malnutrition; R53.81 Other malaise; M51.36 Other intervertebral disc degeneration, lumbar region; B35.4 Tinea corporis; E11.42 Type 2 diabetes mellitus with diabetic polyneuropathy; E66.01 Morbid (severe) obesity due to excess calories; E78.5 Hyperlipidemia, unspecified; F32.9 Major depressive disorder, single episode, unspecified; K59.00 Constipation, unspecified; L30.9 Dermatitis, unspecified; M17.0 Bilateral primary osteoarthritis of knee; I95.9 Hypotension, unspecified; M43.16 Spondylolisthesis, lumbar region; M47.816 Spondylosis without myelopathy or radiculopathy, lumbar region; M48.02 Spinal stenosis, cervical region; M48.061 Spinal stenosis, lumbar region without neurogenic claudication; E53.8 Deficiency of other specified B group vitamins; E78.00 Pure hypercholesterolemia, unspecified; F41.9 Anxiety disorder, unspecified; K21.9 Gastro-esophageal reflux disease without esophagitis; I11.0 Hypertensive heart disease with heart failure; M75.41 Impingement syndrome of right shoulder; R29.6 Repeated falls; M51.34 Other intervertebral disc degeneration, thoracic region; R32 Unspecified urinary incontinence; Z79.01 Long term (current) use of anticoagulants; Z82.49 Family history of ischemic heart disease and other diseases of the circulatory system; Z85.3 Personal history of malignant neoplasm of breast; Z86.718 Personal history of other venous thrombosis and embolism; Z88.6 Allergy status to analgesic agent; Z88.8 Allergy status to other drugs, medicaments and biological substances; Z79.4 Long term (current) use of insulin; Z91.81 History of falling; Z90.710 Acquired absence of both cervix and uterus; Z98.891 History of uterine scar from previous surgery; Z90.721 Acquired absence of ovaries, unilateral
CPT/HCPCS: 36415; 72128; 73030; 80048; 80061; 82140; 82306; 82550; 82607; 82728; 82746; 82962; 83036; 83520; 83540; 83550; 83735; 83880; 84100; 84134; 84439; 84443; 84481; 84630; 90686; 90732; 93005; 93306; 93970; 97110; 97116; 97150; 97162; 97167; 97530; 97535; A6261; J1815; J1940; J2060; J3420

== ENCOUNTER 2020-12-30 20:48 | Inpatient (IN) | payer MEDICARE, BC ==
[~2020-12-30] VITALS: Ht 167.6 cm; Wt 136.5 kg
[~2020-12-30 20:48] MED LIST: GABA-532 MT; GLIP5TAB12 MT; INSU100I24 SQ; INSU100V9 SQ
[2020-12-30] MEDS ORDERED: ACETAMINOPHEN 325MG TABLET PO STA (21:02)
[2020-12-30] MEDS ORDERED: PIPERACILLIN/TAZ 3.375G PREMIX 50 ML IV ONE (21:15)
[2020-12-30] MEDS ORDERED: VANCOMYCIN 1 G PREMIX 200 ML IV ONE (21:15)
[2020-12-30] MEDS ORDERED: SODIUM CHLORIDE 0.9% 1000ML BAG (SEPSIS BOLUS) IV ONE (21:15)
[2020-12-30 21:32] LABS: BASOPHILS % 0.2 % (0.0-2.0); EOSINOPHILS % 0.4 % (0.0-5.0); HEMOGLOBIN. 13.1 g/dL (12.0-16.0); LYMPHOCYTES % 12.7 % (20.0-50.0); MEAN CORPUSCULAR HEMOGLOBIN 28.2 pg (28.0-32.0); MEAN CORPUSCULAR VOLUME 85.9 fL (81.0-99.0); MEAN PLATELET VOLUME 10.1 fl (7.4-10.4); MONOCYTES % 2.4 % (2.0-8.0); NEUTROPHILS % 84.3 % (40.0-76.0); PLATELET 192 x1000/uL (130-400); RED BLOOD CELL COUNT 4.66 mill/uL (4.2-5.4); RED CELL DISTRIBUTION WIDTH 15.3 % (11.6-14.6)
[2020-12-30 21:40] LABS: CHLORIDE 103 mEq/L (98-107)
[2020-12-30 21:41] LABS: INR 1.1; PROTHROMBIN TIME 11.9 sec (9.6-11.0)
[2020-12-30] MEDS ORDERED: MORPHINE SULFATE 2 MG/ML CPJ (NOT FOR IM USE) IV PRN (23:15)
[2020-12-30] MEDS ORDERED: CLONIDINE 0.1MG TABLET PO PRN (23:15)
[2020-12-30] MEDS ORDERED: ACETAMINOPHEN 325MG TABLET PO PRN ×2 (23:15)
[2020-12-30] MEDS ORDERED: IPRATROPIUM/ALBUTEROL 0.5-3(2.5)MG/3ML NEB NEB PRN (23:15)
[2020-12-30] MEDS ORDERED: DIPHENHYDRAMINE 50MG/ML VIAL IV PRN (23:15)
[2020-12-30] MEDS ORDERED: DOCUSATE SODIUM 100MG CAPSULE PO PRN (23:15)
[2020-12-30] MEDS ORDERED: ACETAMINOPHEN 650MG SUPP PR PRN (23:15)
[2020-12-30] MEDS ORDERED: GUAIFENESIN 200MG/10ML SUGAR FREE UDC PO PRN (23:15)
[2020-12-31] MEDS ORDERED: MAGNESIUM 2 G PREMIX 50 ML IV NR (01:00)
[2020-12-31 05:48] LABS: BASOPHILS % 0.3 % (0.0-2.0); EOSINOPHILS % 0.2 % (0.0-5.0); HEMATOCRIT. 36.2 % (36.0-48.0); HEMOGLOBIN. 11.9 g/dL (12.0-16.0); LYMPHOCYTES % 12.5 % (20.0-50.0); MEAN CORPUSCULAR HEMOGLOBIN 28.2 pg (28.0-32.0); MEAN CORPUSCULAR VOLUME 85.9 fL (81.0-99.0); MEAN PLATELET VOLUME 10.2 fl (7.4-10.4); MONOCYTES % 7.6 % (2.0-8.0); NEUTROPHILS % 79.4 % (40.0-76.0); PLATELET 177 x1000/uL (130-400); RED BLOOD CELL COUNT 4.21 mill/uL (4.2-5.4); RED CELL DISTRIBUTION WIDTH 15.9 % (11.6-14.6)
[2020-12-31 05:51] LABS: CHLORIDE 104 mEq/L (98-107)
[2020-12-31 06:02] LABS: CREATINE KINASE 305 IU/L (26-192); LDL CHOLESTEROL 84 mg/dL (5-100)
[2020-12-31 06:03] LABS: HDL CHOLESTEROL 28 mg/dL (40-59)
[2020-12-31 06:11] LABS: T4 FREE 1.15 ng/dL (0.76-1.46)
[2020-12-31 07:06] LABS: CLARITY URINE CLOUDY (CLEAR); COLOR URINE YELLOW (YELLOW); KETONES URINE NEGATIVE (NEGATIVE); LEUKOCYTE ESTERASE URINE 2+ (NEGATIVE); NITRITE URINE NEGATIVE (NEGATIVE); OCCULT BLOOD URINE 2+ (NEGATIVE); PROTEIN URINE 1+ (NEGATIVE); SPECIFIC GRAVITY URINE 1.013 (1.005-1.030)
[2020-12-31] MEDS ORDERED: DEXTROSE 50% WATER 50ML SYRINGE IV PRN (07:45)
[2020-12-31] MEDS ORDERED: ENOXAPARIN 30MG/0.3ML SYR SUBCUT SCH (09:00)
[2020-12-31] MEDS ORDERED: FUROSEMIDE 40MG/4ML VIAL IVP NR (09:45)
[2020-12-31] MEDS: VANCOMYCIN 1 G PREMIX 200 ML IV SCH (10:09)
[2020-12-31] MEDS: PIPERACILLIN/TAZOBACTAM 3.375G in DEXT 5% WATER 50ML IV SCH ×2 (11:33→15:00)
[2020-12-31] MEDS ORDERED: INSULIN LISPRO 100 UNITS/ML SUBCUT SCH (12:00)
[2020-12-31] MEDS: BLOOD SUGAR DIAGNOSTIC STRIP TEST SCH ×3 (12:10→23:29)
[2020-12-31] MEDS ORDERED: PIPERACILLIN/TAZOBACTAM 3.375 G/VIAL IV SCH (14:00)
[2020-12-31] MEDS: INSULIN LISPRO 100 UNITS/ML SUBCUT SCH ×2 (17:00→23:40)
[2020-12-31] MEDS: HYDROCODONE/ACETAMINOPHEN 5/325MG TABLET PO PRN (18:01)
[2020-12-31] MEDS: ONDANSETRON HCL 4MG/2ML INJ IV PRN (18:04)
[2020-12-31] MEDS: MAGNESIUM/ALUMINUM HYDROXIDE/SIMETHICONE 30ML UDC PO PRN (18:05)
[2020-12-31 21:37] VITALS: BP 116/53
[2020-12-31 22:37] VITALS: BP 116/53
[2020-12-31] MEDS: ENOXAPARIN 40MG/0.4ML SYR SUBCUT SCH (23:40)
[2021-01-01] VITALS (7 sets, daily range): BP systolic 116–147; BP diastolic 38–52
[2021-01-01] MEDS: PIPERACILLIN/TAZOBACTAM 3.375G in DEXT 5% WATER 50ML IV SCH (00:03)
[2021-01-01] MEDS: ONDANSETRON HCL 4MG/2ML INJ IV PRN ×2 (02:19→22:55)
[2021-01-01] MEDS: VANCOMYCIN 1 G PREMIX 200 ML IV SCH (03:15)
[2021-01-01] MEDS: HYDROCODONE/ACETAMINOPHEN 5/325MG TABLET PO PRN (03:22)
[2021-01-01] MEDS ORDERED: PIPERACILLIN/TAZOBACTAM 3.375 G in DEXTROSE 5% WATER 50 ML IV SCH (06:00)
[2021-01-01] MEDS: BLOOD SUGAR DIAGNOSTIC STRIP TEST SCH ×4 (06:19→21:00)
[2021-01-01] MEDS: INSULIN LISPRO 100 UNITS/ML SUBCUT SCH ×4 (06:26→21:00)
[2021-01-01 06:40] LABS: CHLORIDE 104 mEq/L (98-107)
[2021-01-01 06:41] LABS: BASOPHILS % 0.3 % (0.0-2.0); EOSINOPHILS % 0.9 % (0.0-5.0); HEMATOCRIT. 33.6 % (36.0-48.0); HEMOGLOBIN. 11.3 g/dL (12.0-16.0); LYMPHOCYTES % 10.6 % (20.0-50.0); MEAN CORPUSCULAR HEMOGLOBIN 28.8 pg (28.0-32.0); MEAN CORPUSCULAR VOLUME 85.6 fL (81.0-99.0); MEAN PLATELET VOLUME 11.3 fl (7.4-10.4); MONOCYTES % 8.4 % (2.0-8.0); NEUTROPHILS % 79.8 % (40.0-76.0); PLATELET 140 x1000/uL (130-400); RED BLOOD CELL COUNT 3.93 mill/uL (4.2-5.4); RED CELL DISTRIBUTION WIDTH 15.6 % (11.6-14.6)
[2021-01-01] MEDS: FUROSEMIDE 40MG/4ML VIAL IVP SCH (09:16)
[2021-01-01] MEDS: ENOXAPARIN 40MG/0.4ML SYR SUBCUT SCH ×2 (09:16→22:30)
[2021-01-01] MEDS: MAGNESIUM/ALUMINUM HYDROXIDE/SIMETHICONE 30ML UDC PO PRN (09:16)
[2021-01-01] MEDS: MEROPENEM 1,000 MG in SODIUM CHLORIDE 0.9% 100 ML IV SCH ×2 (15:24→22:30)
[2021-01-01] MEDS ORDERED: NALOXONE HCL 0.4MG/ML VIAL IV PRN (22:00)
[2021-01-02] VITALS: BP 126/51
[2021-01-02] MEDS: BLOOD SUGAR DIAGNOSTIC STRIP TEST SCH ×4 (06:35→21:10)
[2021-01-02] MEDS: MEROPENEM 1,000 MG in SODIUM CHLORIDE 0.9% 100 ML IV SCH ×3 (06:35→21:10)
[2021-01-02] MEDS: INSULIN LISPRO 100 UNITS/ML SUBCUT SCH ×4 (07:10→21:09)
[2021-01-02 08:00] VITALS: BP 137/48
[2021-01-02] MEDS: MAGNESIUM/ALUMINUM HYDROXIDE/SIMETHICONE 30ML UDC PO PRN (10:08)
[2021-01-02] MEDS: HYDROCODONE/ACETAMINOPHEN 5/325MG TABLET PO PRN ×2 (10:09→21:19)
[2021-01-02] MEDS: FUROSEMIDE 40MG/4ML VIAL IVP SCH (10:10)
[2021-01-02] MEDS: ENOXAPARIN 40MG/0.4ML SYR SUBCUT SCH ×2 (10:10→21:10)
[2021-01-02 12:00] VITALS: BP 116/45
[2021-01-02 16:00] VITALS: BP 141/52
[2021-01-02 20:00] VITALS: BP 127/51
[2021-01-03] VITALS: BP 105/34
[2021-01-03 04:00] VITALS: BP 131/48
[2021-01-03] MEDS: MEROPENEM 1,000 MG in SODIUM CHLORIDE 0.9% 100 ML IV SCH ×3 (05:07→22:01)
[2021-01-03] MEDS: BLOOD SUGAR DIAGNOSTIC STRIP TEST SCH ×4 (05:53→20:55)
[2021-01-03] MEDS: INSULIN LISPRO 100 UNITS/ML SUBCUT SCH ×4 (06:18→20:54)
[2021-01-03 08:00] VITALS: BP 144/52
[2021-01-03] MEDS: ASCORBIC ACID 500 MG TABLET PO SCH (09:26)
[2021-01-03] MEDS: ENOXAPARIN 40MG/0.4ML SYR SUBCUT SCH ×2 (09:26→20:43)
[2021-01-03] MEDS: ZINC SULFATE 220 MG ( 50 ) CAPSULE PO SCH (09:26)
[2021-01-03] MEDS: HYDROCODONE/ACETAMINOPHEN 5/325MG TABLET PO PRN ×4 (09:44→23:41)
[2021-01-03] MEDS: ONDANSETRON HCL 4MG/2ML INJ IV PRN (09:44)
[2021-01-03 12:00] VITALS: BP 122/53
[2021-01-03] MEDS: FUROSEMIDE 40MG/4ML VIAL IVP SCH (13:45)
[2021-01-03 16:00] VITALS: BP 136/47
[2021-01-03 20:00] VITALS: BP 130/46
[2021-01-03] MEDS: DIPHENHYDRAMINE 50MG/ML VIAL IV PRN (20:43)
[2021-01-04] VITALS (7 sets, daily range): BP systolic 126–141; BP diastolic 49–56
[2021-01-04] MEDS: DIPHENHYDRAMINE 50MG/ML VIAL IV PRN ×2 (00:46→11:44)
[2021-01-04] MEDS: MEROPENEM 1,000 MG in SODIUM CHLORIDE 0.9% 100 ML IV SCH ×3 (05:18→21:44)
[2021-01-04] MEDS: HYDROCODONE/ACETAMINOPHEN 5/325MG TABLET PO PRN ×3 (05:43→21:58)
[2021-01-04] MEDS: BLOOD SUGAR DIAGNOSTIC STRIP TEST SCH ×4 (05:46→21:25)
[2021-01-04] MEDS: ONDANSETRON HCL 4MG/2ML INJ IV PRN ×2 (06:05→21:55)
[2021-01-04] MEDS: INSULIN LISPRO 100 UNITS/ML SUBCUT SCH ×4 (06:22→21:00)
[2021-01-04] MEDS: ZINC SULFATE 220 MG ( 50 ) CAPSULE PO SCH (09:00)
[2021-01-04] MEDS: ASCORBIC ACID 500 MG TABLET PO SCH (09:12)
[2021-01-04] MEDS: ENOXAPARIN 40MG/0.4ML SYR SUBCUT SCH ×2 (09:13→21:44)
[2021-01-04] MEDS: FUROSEMIDE 40MG/4ML VIAL IVP SCH (09:13)
[2021-01-04] MEDS ORDERED: DIPHENHYDRAMINE 12.5MG/5ML UDC PO PRN (13:30)
[2021-01-04] MEDS ORDERED: [UNRECOGNIZED DRUG - OTHER] XX SCH (14:45)
[2021-01-05] VITALS: BP 125/40
[2021-01-05] MEDS: MEROPENEM 1,000 MG in SODIUM CHLORIDE 0.9% 100 ML IV SCH ×2 (05:26→13:59)
[2021-01-05] MEDS: BLOOD SUGAR DIAGNOSTIC STRIP TEST SCH ×3 (06:30→16:34)
[2021-01-05] MEDS: ONDANSETRON HCL 4MG/2ML INJ IV PRN (06:35)
[2021-01-05] MEDS: INSULIN LISPRO 100 UNITS/ML SUBCUT SCH ×3 (06:35→16:37)
[2021-01-05] MEDS ORDERED: LIDOCAINE HCL 1% 20ML VIAL (Pyxis) INJ ONE (07:43)
[2021-01-05 08:00] VITALS: BP 136/50
[2021-01-05] MEDS: ENOXAPARIN 40MG/0.4ML SYR SUBCUT SCH (09:57)
[2021-01-05] MEDS: ZINC SULFATE 220 MG ( 50 ) CAPSULE PO SCH ×2 (09:57→10:08)
[2021-01-05] MEDS: FUROSEMIDE 40MG/4ML VIAL IVP SCH (09:57)
[2021-01-05] MEDS: ASCORBIC ACID 500 MG TABLET PO SCH (09:57)
[2021-01-05 12:00] VITALS: BP 139/48
[2021-01-05] MEDS ORDERED: HYDROCODONE/ACETAMINOPHEN 5/325MG TABLET PO PRN (12:15)
[2021-01-05 12:45] VITALS: BP 139/48
[2021-01-05 16:00] VITALS: BP_SYST 114; BP_SYST 131; BP_DIAS 56; BP_DIAS 82
== END 2021-01-05 19:33 | DRG 871 ==
LOC: ER 20:48 → MICUSO 22:47 → EDBEDREQ 22:54 → EDBEDREQTM 22:54 → 7EST 12-31 20:22
PROVIDERS: ADMIT Family Medicine Adult Medicine; ATTEND Internal Medicine Nephrology
PROC: 02HV33Z Insertion of Infusion Device into Superior Vena Cava, Percutaneous Approach (ICD-10-PCS; principal; 2021-01-05)
PROC: B5181ZA Fluoroscopy of Superior Vena Cava using Low Osmolar Contrast, Guidance (ICD-10-PCS; 2021-01-05)
PROC: B548ZZA Ultrasonography of Superior Vena Cava, Guidance (ICD-10-PCS; 2021-01-05)
DX: A41.51 Sepsis due to Escherichia coli [E. coli] (principal); L89.153 Pressure ulcer of sacral region, stage 3; J18.9 Pneumonia, unspecified organism; J96.00 Acute respiratory failure, unspecified whether with hypoxia or hypercapnia; I50.33 Acute on chronic diastolic (congestive) heart failure; G82.50 Quadriplegia, unspecified; G93.41 Metabolic encephalopathy; M62.82 Rhabdomyolysis; N20.2 Calculus of kidney with calculus of ureter; E44.0 Moderate protein-calorie malnutrition; N39.0 Urinary tract infection, site not specified; Z68.42 Body mass index [BMI] 45.0-49.9, adult; E11.9 Type 2 diabetes mellitus without complications; N63.0 Unspecified lump in unspecified breast; Z20.822 Contact with and (suspected) exposure to COVID-19; R26.9 Unspecified abnormalities of gait and mobility; E66.01 Morbid (severe) obesity due to excess calories; E78.00 Pure hypercholesterolemia, unspecified; F32.9 Major depressive disorder, single episode, unspecified; E78.5 Hyperlipidemia, unspecified; F17.200 Nicotine dependence, unspecified, uncomplicated; R16.0 Hepatomegaly, not elsewhere classified; I11.0 Hypertensive heart disease with heart failure; G89.4 Chronic pain syndrome; K80.20 Calculus of gallbladder without cholecystitis without obstruction; M19.90 Unspecified osteoarthritis, unspecified site; Z82.49 Family history of ischemic heart disease and other diseases of the circulatory system; Z86.16 Personal history of COVID-19; Z86.718 Personal history of other venous thrombosis and embolism; Z71.3 Dietary counseling and surveillance; Z88.8 Allergy status to other drugs, medicaments and biological substances; Z98.891 History of uterine scar from previous surgery; Z79.4 Long term (current) use of insulin; Z79.899 Other long term (current) drug therapy
CPT/HCPCS: 36415; 36573; 71045; 74176; 80048; 80053; 80061; 80202; 81003; 82040; 82330; 82550; 82962; 83036; 83605; 83735; 84134; 84145; 84439; 84443; 84484; 84550; 85025; 87077; 87186; 87426; 92523; 92610; 93005; 93970; 97162; 97165; 97530; 99291; C1725; J1200; J1650; J1815; J1940; J2185; J2270; J2405; J2543; J3370; J3475; J3490; J7030; J7040; J7050; J7060; Q0163